=== PATIENT | female | born 1990 | race Hispanic/Latino ===

== ENCOUNTER 2018-03-03 12:10 | Observation (INO) | payer MEDICAID ==
[~2018-03-03] VITALS: Ht 157.5 cm; Wt 87.5 kg
== END 2018-03-03 14:15 | disposition home or self-care (01) ==
LOC: INTOOBSV 12:10 → LDH 12:10
PROVIDERS: ADMIT Obstetrics & Gynecology; ATTEND Obstetrics & Gynecology
DX: O13.3 Gestational [pregnancy-induced] hypertension without significant proteinuria, third trimester (principal); Z3A.39 39 weeks gestation of pregnancy
CPT/HCPCS: G0378 ×3; 36415; 80053; 81001; 84550; 85025; 85384; 85610; 85730; 86592; 86850; 86900; 86901; 87340

== ENCOUNTER 2018-03-04 11:34 | Inpatient (IN) | payer MEDICAID ==
[2018-03-03 13:05] LABS: BASOPHILS % (AUTO) 0.8 % (0.0-5.0); EOSINOPHILS % (AUTO) 0.8 % (0.0-8.0); HEMATOCRIT 35.9 % (36-48); LYMPHOCYTES % (AUTO) 23.7 % (21.0-51.0); MEAN CORPUSCULAR HEMOGLOBIN 31.2 pg (27.0-33.0); MEAN CORPUSCULAR HGB CONC 35.4 g/dL (32.0-36.0); MEAN CORPUSCULAR VOLUME 88.3 fL (79-99); MONOCYTES % (AUTO) 9.3 % (3.0-13.0); NEUTROPHILS % (AUTO) 65.4 % (40.0-77.0); NUCLEATED RED BLOOD CELLS 0.1 % (0.0-0.19); PLATELET COUNT (AUTO) 127 K/uL (130-400); RED BLOOD CELL COUNT(AUTO) 4.06 MIL/uL (4.00-5.50); RED CELL DISTRIBUTION WIDTH 13.8 % (11.0-15.5); WHITE BLOOD COUNT (AUTO) 7.3 K/uL (4.8-10.8)
[2018-03-03 13:07] LABS: BILIRUBIN,URINE Small (NEGATIVE); COLOR,URINE Dark Yellow (YELLOW); GLUCOSE, URINE (UA) Negative (NEGATIVE); KETONES,URINE Negative (NEGATIVE); LEUKOCYTE ESTERASE ,URINE Negative (NEGATIVE); NITRATE,URINE Negative (NEGATIVE); OCCULT BLOOD,URINE Trace (NEGATIVE); PH,URINE 5.5 (5.0-8.0); PROTEIN,URINE 300 (NEGATIVE)
[2018-03-03 13:10] LABS: APPEARANCE,URINE SLIGHTLY CLOUDY (CLEAR)
[2018-03-03 13:15] LABS: CREATININE 0.8 mg/dL (0.5-1.5); POTASSIUM 3.8 mmol/L (3.5-5.1)
[2018-03-03 13:20] LABS: ALBUMIN 2.3 g/dL (3.5-5.0); BILIRUBIN,TOTAL 0.2 mg/dL (0.2-1.0); TOTAL PROTEIN, SERUM 6.2 g/dL (6.0-8.3); URIC ACID 6.1 mg/dL (2.6-7.2)
[2018-03-03 13:25] LABS: INR 0.86 (0.85-1.15); PARTIAL THROMBOPLASTIN TIME 26.4 SEC (26.3-35.5); PROTHROMBIN TIME 8.9 SEC (9.6-11.6)
[2018-03-03 13:26] LABS: BACTERIA,URINE Few /HPF (None Seen); MUCUS,URINE Rare LPF (None Seen); RBC,URINE 0-1 /HPF (0-1); SQUAMOUS EPITHELIAL CELL,UR Few /HPF (0-2)
[~2018-03-04] VITALS: Ht 160 cm; Wt 87.5 kg
[2018-03-04] MEDS ORDERED: LACTATED RINGERS 1000ML 1,000 ML IV PRN (11:58)
[2018-03-04] MEDS ORDERED: AMPICILLIN 2GM+NS 100ML 100 ML IV ONE (12:33)
[2018-03-04 17:18] LABS: HEMATOCRIT 35.9 % (36-48); MEAN CORPUSCULAR HEMOGLOBIN 30.3 pg (27.0-33.0); MEAN CORPUSCULAR HGB CONC 34.4 g/dL (32.0-36.0); MEAN CORPUSCULAR VOLUME 88.1 fL (79-99); PLATELET COUNT (AUTO) 126 K/uL (130-400); RED BLOOD CELL COUNT(AUTO) 4.07 MIL/uL (4.00-5.50); RED CELL DISTRIBUTION WIDTH 13.6 % (11.0-15.5); WHITE BLOOD COUNT (AUTO) 7.9 K/uL (4.8-10.8)
[2018-03-04] MEDS ORDERED: AMPICILLIN 1GM+NS 50ML 50 ML IV ONE (17:49)
[2018-03-04] MEDS: LACTATED RINGERS 1000ML 1,000 ML IV SCH (22:00)
[2018-03-04] MEDS: AMPICILLIN 1GM+NS 50ML 50 ML IV SCH (23:03)
[2018-03-05] VITALS (8 sets, daily range): BP systolic 116–142; BP diastolic 68–95
[2018-03-05] MEDS ORDERED: LACTATED RINGERS 1000ML 1,000 ML IV ONE (01:50)
[2018-03-05] MEDS ORDERED: OXYTOCIN 10 USP UNITS/ML 20 UNIT in LACTATED RINGERS 1000ML 1,000 ML IV SCH (02:00)
[2018-03-05] MEDS: AMPICILLIN 1GM+NS 50ML 50 ML IV SCH ×8 (03:04→23:56)
[2018-03-05] MEDS ORDERED: MEPERIDINE-PF 50 MG/ML SYG IVP SCH (06:30)
[2018-03-05] MEDS ORDERED: PROMETHAZINE HCL 25 MG/ML 1ML AMPULE IM SCH (06:30)
[2018-03-05] MEDS ORDERED: MEPERIDINE-PF 50 MG/ML SYG ONE (06:36)
[2018-03-05] MEDS ORDERED: PROMETHAZINE HCL 25 MG/ML 1ML AMPULE IM ONE (06:37)
[2018-03-05] MEDS ORDERED: PHARMACY COMMUNICATION MISC SCH (08:15)
[2018-03-05] MEDS: LAMOTRIGINE 100 MG PO SCH ×2 (08:53→21:14)
[2018-03-05] MEDS ORDERED: LIDOCAINE HCL 1% 20 ML VIAL ONE (09:41)
[2018-03-05] MEDS ORDERED: LANOLIN 30GM OINTMENT TP PRN (12:00)
[2018-03-05] MEDS ORDERED: WITCH HAZEL 1 PAD TP PRN (12:00)
[2018-03-05] MEDS ORDERED: DIPH,PERTUSS(ACELL),TET VAC/PF 0.5 ML VIAL IM PRN (12:00)
[2018-03-05] MEDS ORDERED: ACETAMINOPHEN 325 MG TAB PO PRN (12:00)
[2018-03-05] MEDS ORDERED: BENZOCAINE/LANOLIN/ALOE VERA 60 ML AEROSOL TP PRN (12:00)
[2018-03-05] MEDS: DINOPROSTONE 10 MG VAGINAL SUPP VG SCH ×2 (12:00→23:56)
[2018-03-05] MEDS ORDERED: MEASLES/MUMPS/RUBELLA VACCINE, LIVE 0.5 ML/VIAL SQ PRN (12:00)
[2018-03-05] MEDS: IBUPROFEN 800 MG TAB PO PRN ×2 (13:07→21:15)
[2018-03-05] MEDS: LACTATED RINGERS 1000ML 1,000 ML IV SCH ×3 (14:00→23:54)
[2018-03-05] MEDS ORDERED: OXYTOCIN 10 USP UNITS/ML ONE (14:14)
[2018-03-05] MEDS: DOCUSATE SODIUM 100 MG CAP PO SCH (21:14)
[2018-03-06 04:24] VITALS: BP 120/77
[2018-03-06 06:49] LABS: HEMATOCRIT 26.9 % (36-48); MEAN CORPUSCULAR HEMOGLOBIN 30.4 pg (27.0-33.0); MEAN CORPUSCULAR HGB CONC 34.5 g/dL (32.0-36.0); MEAN CORPUSCULAR VOLUME 88.2 fL (79-99); NUCLEATED RED BLOOD CELLS 0.1 % (0.0-0.19); PLATELET COUNT (AUTO) 118 K/uL (130-400); RED BLOOD CELL COUNT(AUTO) 3.04 MIL/uL (4.00-5.50); RED CELL DISTRIBUTION WIDTH 13.5 % (11.0-15.5); WHITE BLOOD COUNT (AUTO) 10.4 K/uL (4.8-10.8)
[2018-03-06] MEDS: AMPICILLIN 1GM+NS 50ML 50 ML IV SCH (07:16)
[2018-03-06 07:47] VITALS: BP 127/78
[2018-03-06] MEDS: LAMOTRIGINE 100 MG PO SCH ×2 (09:49→20:53)
[2018-03-06] MEDS: DOCUSATE SODIUM 100 MG CAP PO SCH ×2 (09:49→20:53)
[2018-03-06] MEDS: IBUPROFEN 800 MG TAB PO PRN ×2 (09:50→18:37)
[2018-03-06] MEDS ORDERED: LAMO100T13 PO (10:44)
[2018-03-06 11:22] VITALS: BP 130/87
[2018-03-06 15:23] VITALS: BP 132/74
[2018-03-06] MEDS ORDERED: DIPH,PERTUSS(ACELL),TET VAC/PF 0.5 ML VIAL IM ONE (18:32)
[2018-03-06 19:35] VITALS: BP 127/80
[2018-03-06 23:20] VITALS: BP 131/87
[2018-03-07 03:36] VITALS: BP 117/76
[2018-03-07 07:37] VITALS: BP 124/79
[2018-03-07] MEDS: DOCUSATE SODIUM 100 MG CAP PO SCH (09:17)
[2018-03-07] MEDS: IBUPROFEN 800 MG TAB PO PRN (09:20)
[2018-03-12 14:48] LABS: HEPATITIS Bs ANTIGEN SCREEN P SSR (Negative)
== END 2018-03-07 11:25 | disposition home or self-care (01) | DRG 560 ==
LOC: LDH 11:34 → WSH 03-05 11:56
PROVIDERS: ADMIT Obstetrics & Gynecology; ATTEND Obstetrics & Gynecology
PROC: 0W8NXZZ Division of Female Perineum, External Approach (ICD-10-PCS; principal; 2018-03-05)
PROC: 0UQGXZZ Repair Vagina, External Approach (ICD-10-PCS; 2018-03-05)
PROC: 10E0XZZ Delivery of Products of Conception, External Approach (ICD-10-PCS; 2018-03-05)
PROC: 3E0234Z Introduction of Serum, Toxoid and Vaccine into Muscle, Percutaneous Approach (ICD-10-PCS; 2018-03-05)
PROC: 3E0134Z Introduction of Serum, Toxoid and Vaccine into Subcutaneous Tissue, Percutaneous Approach (ICD-10-PCS; 2018-03-05)
DX: O99.824 Streptococcus B carrier state complicating childbirth (principal); G40.909 Epilepsy, unspecified, not intractable, without status epilepticus; O99.354 Diseases of the nervous system complicating childbirth; Z37.0 Single live birth; Z3A.39 39 weeks gestation of pregnancy; Z23 Encounter for immunization
CPT/HCPCS: 36415; 80053; 81001; 82948; 84550; 85025; 85027; 85384; 85610; 85730; 86592; 86850; 86900; 86901; 87340; 90715; A4351; G0378; J0290; J2175; J2550; J2590; J7120